=== PATIENT | male | born 1970 | race Caucasian/White ===

== ENCOUNTER → 2016-08-29 | Outpatient (CLI) | payer MEDICARE, MEDICAID ==
--- NOTE | 2016-08-29 17:51 | RADIOLOGY REPORT (SQ) ---
EXAM DESCRIPTION: U/S RETROPERITON LTD COMPLETED DATE/TIME: 08/29/2016 1:30 pm REASON FOR STUDY: RENAL CYST (N28.1) N28.1 CYST OF KIDNEY, ACQUIRED COMPARISON: None. TECHNIQUE: Dynamic and static grayscale images acquired of the kidneys and bladder and recorded on P ACS. Additional selected color Doppler and spectral images recorded. LIMITATIONS: None. FINDINGS: RIGHT KIDNEY: 12 cm in length. Normal echogenicity. No solid or suspicious masses. R enal cyst is identified measuring 1.2 x 0.7 x 1.3 cm No hydronephrosis. No calcifications. LEFT KIDNEY: 11.9 cm in length. Normal echogenicity. No solid or suspicious masses. Renal cyst is identified measuring 1.9 x 1.7 x 1.4 cm No hydronephrosis. No calcifications. BLADDER: No masses. OTHER FINDINGS: No other significant finding. IMPRESSION: Small bilateral renal cysts. No other significant renal abnormalities were identified. Other findings as noted above TECHNICAL DOCUMENTATION: JOB ID: [id number] [employer]- All Rights Reserved
== END ==
LOC: RAD 12:37
PROVIDERS: ATTEND Physician Assistant
DX: N28.1 Cyst of kidney, acquired (principal)
CPT/HCPCS: 76775

== ENCOUNTER 2016-09-03 12:00 | Day surgery (SDC) | payer MEDICARE, MEDICAID ==
[~2016-09-03 12:00] MED LIST: PROPOFOL INJ 200 MG/20 ML VIAL IV ONE
[2016-09-03] MEDS ORDERED: SIMETHICONE 80 MG TAB.CHEW ONE (13:16)
[2016-09-03 13:36] VITALS: BP 116/74
--- NOTE | 2016-09-03 14:01 | Operative Report ---
Operative Report DATE OF SURGERY: 09/03/16 Operative Report: The risks, benefits and alternatives of the procedure including risks of bleeding, perforation requiring surgery are explained to the patient detail and informed consent was obtained. Patient was taken back to the endoscopy suite and placed in the left, lateral decubital position. A rectal examination was done which did not reveal any masses tears or fissures. Timeout was called. Propofol medications administered. The scope was then carefully advanced all the way to the cecum. The cecum was identified by the usual anatomical landmarks including the ileocecal valve as well as the appendiceal office. Photodocumentation is obtained. The scope was then sequentially pulled back via the various segments of the colon including the ascending colon, hepatic flexure, transverse colon, splenic flexure, descending colon and finding to the rectosigmoid portions of the colon. Retroflexion maneuver was performed. PREOPERATIVE DIAGNOSIS: Abdominal pain, change in bowel habits, previous history of colon polyp POSTOPERATIVE DIAGNOSIS: Right side inflammation status post biopsy. Internal hemorrhoids OPERATION: Colonoscopy with biopsy SURGEON: CHING WILLIS ANESTHESIA: LMAC TISSUE REMOVED OR ALTERED: As described above. COMPLICATIONS: None. ESTIMATED BLOOD LOSS: None. INTRAOPERATIVE FINDINGS: As described above. PROCEDURE: Patient tolerated procedure well. No immediate postprocedure complications are noted. Patient discharged in good condition. Discharge date 09/03/2016. Discharge diet: Regular. Discharge activity: Regular. 2-3 week follow-up to discuss findings. Patient is instructed to call the office or proceed to the emergency room should there be any further problems or questions. We will wait on pathology. 5 year surveillance colonoscopy.
== END 2016-09-03 13:44 | disposition home or self-care (01) ==
LOC: END 12:00
PROVIDERS: ATTEND Internal Medicine Gastroenterology
PROC: 0DBF8ZX Excision of Right Large Intestine, Via Natural or Artificial Opening Endoscopic, Diagnostic (ICD-10-PCS; principal; 2016-09-03 14:00)
DX: K92.1 Melena (principal); K52.9 Noninfective gastroenteritis and colitis, unspecified; K64.8 Other hemorrhoids; I10 Essential (primary) hypertension; F31.9 Bipolar disorder, unspecified; Z79.899 Other long term (current) drug therapy
CPT/HCPCS: 45380; 88305 ×2; A9270; J2704; 810

== ENCOUNTER 2016-10-02 11:50 | Day surgery (SDC) | payer MEDICARE, MEDICAID ==
[~2016-10-02 11:50] MED LIST changes: +DIPHENHYDRAMINE HCL 50 MG/ML VIAL ONE; +EPINEPHRINE INJ 1 MG/10 ML DISP.SYRIN ONE; +FLUMAZENIL INJ 0.5 MG/5 ML VIAL ONE; +GLUCAGON,HUMAN RECOMB 1 MG INJ ONE; +MIDAZOLAM 2 MG/2 ML INJ ONE; +NALOXONE HCL INJ/PF 0.4 MG/1 ML SDV ONE; +ONDANSETRON HCL INJ/PF 4 MG/2 ML SDV ONE; -PROPOFOL INJ 200 MG/20 ML VIAL IV ONE
[2016-10-02] MEDS: MIDAZOLAM 2 MG/2 ML INJ ONE ×3 (12:29→12:36)
[2016-10-02] MEDS: FENTANYL CITRATE INJ/PF 100 MCG/2 ML AMPUL ONE ×5 (12:31→12:43)
--- NOTE | 2016-10-02 13:51 | Operative Report ---
Operative Report DATE OF SURGERY: 10/02/16 Operative Report: The risks benefits and alternatives of the procedure explained to the patient in detail and informed consent is obtained.A GIF Olympus video scope was inserted into the patient's mouth and hypopharynx, the esophagus is identified intubated and insufflated, the scope was then advanced through the esophagus stomach and duodenum, retroflexion maneuver is done, the esophagus stomach and first and second portions of the duodenum examined PREOPERATIVE DIAGNOSIS: Dysphagia POSTOPERATIVE DIAGNOSIS: Esophageal ulcer, healing. There may be slight stricturing in the healing process. Esophagitis. Biopsies taken in the esophagus to rule out eosinophilic esophagitis. Gastritis status post biopsy rule out Helicobacter pylori. Mild duodenitis OPERATION: EGD with biopsy SURGEON: CHING WILLIS ANESTHESIA: Moderate Sedation - 8 mg of Versed, 200 mcg of fentanyl. Conscious sedation monitoring time 30 minutes. Patient was recommended to have propofol at all of the procedures. TISSUE REMOVED OR ALTERED: Specimens as noted above COMPLICATIONS: None. ESTIMATED BLOOD LOSS: None. INTRAOPERATIVE FINDINGS: As described above. PROCEDURE: Patient tolerated the procedure well. No immediate postprocedure complications are noted. Patient discharged in good condition. Discharge date 10/02/2016. Discharge diet: Regular. Discharge activity: Regular. 2-3 week follow-up to discuss findings. Patient is instructed to call the office should there be any further problems or questions. We will wait on pathology.
[2016-10-02 14:06] VITALS: BP 108/70
== END 2016-10-02 13:55 | disposition home or self-care (01) ==
LOC: END 11:50
PROVIDERS: ATTEND Internal Medicine Gastroenterology
PROC: 0DB58ZX Excision of Esophagus, Via Natural or Artificial Opening Endoscopic, Diagnostic (ICD-10-PCS; 2016-10-02)
PROC: 0DB68ZX Excision of Stomach, Via Natural or Artificial Opening Endoscopic, Diagnostic (ICD-10-PCS; principal; 2016-10-02 12:00)
DX: K29.50 Unspecified chronic gastritis without bleeding (principal); K29.80 Duodenitis without bleeding; I10 Essential (primary) hypertension; Z79.899 Other long term (current) drug therapy
CPT/HCPCS: 43239; 88342 ×2; 88305 ×2; J2250; J3010; J0171; J1200; J1610; J2310; J2405; J3490

== ENCOUNTER 2016-12-11 11:25 | Day surgery (SDC) | payer MEDICARE, MEDICAID ==
[2016-12-11] MEDS ORDERED: ONDANSETRON HCL INJ/PF 4 MG/2 ML SDV ONE (12:11)
[2016-12-11] MEDS ORDERED: NALOXONE HCL INJ/PF 0.4 MG/1 ML SDV ONE (12:11)
[2016-12-11] MEDS ORDERED: DIPHENHYDRAMINE HCL 50 MG/ML VIAL ONE (12:11)
[2016-12-11] MEDS ORDERED: MIDAZOLAM 2 MG/2 ML INJ ONE (12:12)
[2016-12-11] MEDS ORDERED: EPINEPHRINE INJ 1 MG/10 ML DISP.SYRIN ONE (12:12)
[2016-12-11] MEDS ORDERED: FLUMAZENIL INJ 0.5 MG/5 ML VIAL ONE (12:12)
[2016-12-11] MEDS ORDERED: GLUCAGON,HUMAN RECOMB 1 MG INJ ONE (12:13)
[2016-12-11] MEDS: MIDAZOLAM 2 MG/2 ML INJ ONE ×3 (12:32→12:40)
[2016-12-11] MEDS: FENTANYL CITRATE INJ/PF 100 MCG/2 ML AMPUL ONE ×3 (12:34→12:42)
--- NOTE | 2016-12-11 13:50 | Operative Report ---
Operative Report DATE OF SURGERY: 12/11/16 Operative Report: The risks benefits and alternatives of the procedure explained to the patient in detail and informed consent is obtained .A GIF Olympus video scope was inserted into the patient's mouth and hypopharynx, the esophagus is identified intubated and insufflated, the scope was then advanced through the esophagus stomach and duodenum, retroflexion maneuver is done, the esophagus stomach and first and second portions of the duodenum examined PREOPERATIVE DIAGNOSIS: Follow-up esophageal ulcer POSTOPERATIVE DIAGNOSIS: Healing esophageal ulcer. Mild gastritis status post biopsy rule out Helicobacter pylori. Duodenitis healing OPERATION: EGD with biopsy SURGEON: CHING WILLIS ANESTHESIA: Moderate Sedation - 50 mg of Benadryl, 8 mg of Versed, 150 mcg of fentanyl. Conscious sedation monitoring time 30 minutes. TISSUE REMOVED OR ALTERED: Gastric mucosal specimen obtained to rule out Helicobacter pylori COMPLICATIONS: None. ESTIMATED BLOOD LOSS: None. INTRAOPERATIVE FINDINGS: As noted above. PROCEDURE: Patient tolerated procedure well. No immediate postprocedure complications are noted. Patient discharged in good condition. Discharge date 12/11/2016. Discharge diet: Regular. Discharge activity: Regular. 2-3 week follow-up to discuss findings. Patient is instructed to call the office or proceed to the emergency room should there be any further problems or questions. We will await pathology.
[2016-12-11 14:06] VITALS: BP 136/86
== END 2016-12-11 14:00 | disposition home or self-care (01) ==
LOC: END 11:25
PROVIDERS: ATTEND Internal Medicine Gastroenterology
PROC: 0DB68ZX Excision of Stomach, Via Natural or Artificial Opening Endoscopic, Diagnostic (ICD-10-PCS; principal; 2016-12-11 12:00)
DX: K22.10 Ulcer of esophagus without bleeding (principal); K29.70 Gastritis, unspecified, without bleeding; I10 Essential (primary) hypertension; F31.9 Bipolar disorder, unspecified; Z91.041 Radiographic dye allergy status; Z09 Encounter for follow-up examination after completed treatment for conditions other than malignant neoplasm; Z87.19 Personal history of other diseases of the digestive system
CPT/HCPCS: 43239; 88305 ×2; J2250; J1200; J3010; J0171; J1610; J2310; J2405; J3490